=== PATIENT | male | born 1955 | race Caucasian/White ===

== ENCOUNTER → 2021-04-26 | Day surgery (SDC) | payer MEDICARE ==
[~2021-04-26] VITALS: Ht 182.9 cm; Wt 87.5 kg
[~2021-04-26] MED LIST: BACTRIM 400-801 EACH PO; BUSPAR 10MG10 MG PO; OMEPRAZOLE40 MG PO; PRAVASTATIN SOD20 MG PO; ZESTRIL2.5 MG PO
[2021-04-26 07:30] LABS: HEMOGLOBIN 15.3 gm/dl (14.0-17.5); WHITE BLOOD COUNT 5.6 K/UL (4.5-11.0)
[2021-04-26 07:47] LABS: BUN/CREATININE RATIO 19 (0-10)
== END | disposition home or self-care (01) ==
LOC: OR 06:50
PROVIDERS: Orthopaedic Surgery
DX: L03.011 Cellulitis of right finger (principal); I96 Gangrene, not elsewhere classified; S67.192A Crushing injury of right middle finger, initial encounter; S62.632A Displaced fracture of distal phalanx of right middle finger, initial encounter for closed fracture; W23.0XXA Caught, crushed, jammed, or pinched between moving objects, initial encounter; I10 Essential (primary) hypertension; E78.5 Hyperlipidemia, unspecified; K21.9 Gastro-esophageal reflux disease without esophagitis; F41.9 Anxiety disorder, unspecified; Z20.822 Contact with and (suspected) exposure to COVID-19; R73.03 Prediabetes
CPT/HCPCS: 71045; 73140; 76000; 80048; 85025; 93005; J0690; J1100; J2250; J2405; J2704; J3010; J7120

== ENCOUNTER → 2021-12-14 | Outpatient (CLI) | payer MEDICARE | LOC: CT 12-06 11:30 | DX: R10.31 Right lower quadrant pain (principal); I10 Essential (primary) hypertension | CPT/HCPCS: 36415; 82565; 84520; Q9967 ==

== ENCOUNTER → 2022-02-15 | Outpatient (CLI) | payer MEDICARE ==
[2022-02-17 04:09] LABS: TESTOSTERONE, SERUM 645 ng/dL (264-916)
== END ==
LOC: LAB 10:53
PROVIDERS: Physician Assistant
DX: N20.0 Calculus of kidney (principal); N40.1 Benign prostatic hyperplasia with lower urinary tract symptoms; R53.83 Other fatigue; K59.00 Constipation, unspecified
CPT/HCPCS: 36415; 74018; 84402; 84403

== ENCOUNTER → 2022-05-10 | Outpatient (CLI) | payer MEDICARE | LOC: KOH-I 10:31 | DX: J20.9 Acute bronchitis, unspecified (principal) | CPT/HCPCS: 71046 ==